=== PATIENT | female | born 1965 | race Caucasian/White ===

== ENCOUNTER 2017-02-05 15:26 | Emergency (ER) | payer OTHER ==
[~2017-02-05 15:26] MED LIST: AMINO ACID PO; COUMADIN5 MG PO; EQL FISH OIL 1,1 CA1 PO; LOPRESSOR25 MG/TA1 PO; LOVENOX80 MG/0.8 SQ; TYLENOL325 MG PO; XANAX0.25 MG PO; [UNRECOGNIZED DRUG - OTHER] PO
== END 2017-02-05 16:30 | disposition left against medical advice (07) ==
LOC: EDMED 15:26
DX: Z53.21 Procedure and treatment not carried out due to patient leaving prior to being seen by health care provider (principal)